=== PATIENT | male | born 1965 | race Two or more races ===

== ENCOUNTER 2022-11-22 08:11 | Inpatient (IN) | payer OTHER ==
[~2022-11-22] VITALS: Ht 170.2 cm; Wt 93.0 kg
[2022-11-22] MEDS ORDERED: TENORMIN50 M1 PO (09:00)
[2022-11-22 09:58] LABS: HEMATOCRIT 44.3 % (39.0-48.0); HEMOGLOBIN 14.9 g/dL (13-16.00); MEAN CELL VOLUME 93.9 fL (80.0-100.00); MEAN CORPUSCULAR HEMOGLOBIN 31.6 pg (27.00-32.0); MEAN CORPUSCULAR HGB CONC 33.7 g/dl (32.0-36.0); PLATELET COUNT 228 K/uL (150-450); RED BLOOD COUNT 4.71 M/uL (4.00-6.00)
[2022-11-22 10:04] LABS: PH,URINE 5.5 (5.0-8.0); URINE APPEARANCE Clear; URINE BILIRRUBIN Negative (NEGATIVE); URINE BLOOD Negative; URINE COLOR Yellow; URINE GLUCOSE Negative (NEGATIVE); URINE LEUKOCYTE Negative; URINE NITRATE Negative; URINE PROTEIN Negative (NEGATIVE); URINE UROBILINOGEN 0.2 E.U./dl
[2022-11-22 10:08] LABS: URINE EPITHELIAL CELLS 4.4 uL (0.0-38.8); URINE RBC 2.1 uL (0.0-20.8); URINE WBC 6.7 uL (0.0-23.2)
[2022-11-22 10:32] LABS: INR 1.02; PARTIAL THROMBOPLASTIN TIME 27.5 SECONDS (22.0-34.0); PROTHROMBIN TIME 10.7 SECONDS (9.0-11.5)
[2022-11-22 10:36] LABS: CALCIUM 9.2 mg/dL (8.5-10.1); CREATININE SERUM 0.91 mg/dL (0.70-1.30); GFR 86.18; POTASSIUM 5.17 mEq/L (3.5-5.1)
[2022-11-27 08:55] LABS: CALCIUM 8.2 mg/dL (8.5-10.1); CREATININE SERUM 1.07 mg/dL (0.70-1.30); GFR 71.49; POTASSIUM 4.51 mEq/L (3.5-5.1)
[2022-11-27 09:48] LABS: HEMATOCRIT 42.8 % (39.0-48.0); HEMOGLOBIN 13.9 g/dL (13-16.00); MEAN CELL VOLUME 95.2 fL (80.0-100.00); MEAN CORPUSCULAR HGB CONC 32.5 g/dl (32.0-36.0); PLATELET COUNT 213 K/uL (150-450); RED BLOOD COUNT 4.49 M/uL (4.00-6.00); RED CELL DISTRIBUTION WIDTH 13.9 % (11.5-14.5)
== END 2022-11-28 13:06 | disposition home or self-care (01) | DRG 708 ==
LOC: O/R 11-26 05:20 → SURH 11-26 05:20
PROVIDERS: ADMIT Urology; ATTEND Urology
PROC: 8E0W0CZ Robotic Assisted Procedure of Trunk Region, Open Approach (ICD-10-PCS; 2022-11-26)
PROC: 0VT00ZZ Resection of Prostate, Open Approach (ICD-10-PCS; principal; 2022-11-26 07:00)
DX: C61 Malignant neoplasm of prostate (principal)
CPT/HCPCS: 55866; S2900